=== PATIENT | female | born 1995 | race Caucasian/White ===

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

== ENCOUNTER 2017-01-26 09:10 | Outpatient (CLI) | payer OTHER ==
--- NOTE | 2017-01-26 10:52 | DIAGNOSTIC IMAGING REPORT ---
PROCEDURE: US OB DETAILED ANATOMIC INDICATION: ANATOMY TECHNIQUE: Bean scale, color, and spectral Doppler images of the second trimester gravid uterus were obtained. COMPARISON: None. FINDINGS: A single living intrauterine is in vertex presentation. There is regular cardiac activity at a rate of 155 beats per minute. The placenta is posterior and to the maternal left and away from the internal cervical os. The cervix is closed measuring approximately 3.7 cm in length. The amniotic fluid volume is subjectively normal. Biparietal diameter 4.8 cm, 20 weeks 4 days Head circumference 17.6 cm, 20 weeks 0 days Abdominal circumference 15.7 cm, 20 weeks 6 days Femur length 3.5 cm, 20 weeks 6 days Head to abdominal circumference ratio and femur length to abdominal circumference ratios are normal. Estimated weight 375 g plus/minus 56 g Composite gestational age 20 weeks 4 days There was visualization of a number of normal structures including the intracranial contents, facial features, nuchal region, spine, four-chamber heart and outflow tracts to the extent that could be visualized, diaphragm, fluid-filled stomach, kidneys, abdomen, urinary bladder, upper and lower extremities, and genitals. A three-vessel umbilical cord, normal and placental cord insertion sites were seen. Incidental note is made of a fairly large simple cystic structure immediately adjacent to the uterus in the right adnexa measuring approximately 7.6 cm in greatest diameter, likely ovarian cyst. No free pelvic fluid. IMPRESSION: 1. Single living intrauterine with a composite gestational age of 20 weeks 4 days and estimated due date 06/11/2017. 2. Symmetric growth and normal anatomy.
== END 2017-01-26 23:00 ==
LOC: US SRH 09:10
DX: Z34.92 Encounter for supervision of normal pregnancy, unspecified, second trimester (principal); Z3A.20 20 weeks gestation of pregnancy

== ENCOUNTER → 2017-03-28 | Outpatient (CLI) | payer OTHER | LOC: LAB SRH 09:57 | DX: Z34.82 Encounter for supervision of other normal pregnancy, second trimester (principal) | CPT/HCPCS: 90039; 90074; 91162; 91163 ==

== ENCOUNTER → 2017-05-27 | Outpatient (CLI) | payer OTHER ==
--- NOTE | 2017-05-28 10:16 | DIAGNOSTIC IMAGING REPORT ---
PROCEDURE: US OB RE-EVALUATION INDICATION: SIZE GREATER THAN DATES TECHNIQUE: Transabdominal ramos scale and color Doppler imaging was obtained of the third trimester gravid uterus. COMPARISON: 01/26/2017 FINDINGS: Single live intrauterine is in vertex presentation. Regular heart rate at 143 beats per minute. Placenta is fundal in the posterior and has a normal appearance without previa or abruption. The cervix is closed and measures 3.5 cm in length. Amniotic fluid index is 11.5 cm, within normal limits. 9.1 cm, 36-week 6 days Head circumference 33.7 cm, 38 weeks 4 days Abdominal circumference 32.7 cm, 36 weeks 4 days Femur length 7.3 cm, 37 weeks 2 days Estimated weight 3094 g plus/minus 464 g, 38 weeks 3 days Head to abdominal circumference ratio and femur length to abdominal circumference ratios are normal Composite gestational age 37 weeks 2 days IMPRESSION: 1. Single living intrauterine with a gestational age of 37 weeks 2 days, 4 days behind the initially assigned gestational age of 37 weeks 6 days. 2. Fairly symmetric growth. 3. Closed cervix and normal amniotic fluid volume.
== END ==
LOC: US SRH 15:00
DX: Z34.93 Encounter for supervision of normal pregnancy, unspecified, third trimester (principal); Z3A.37 37 weeks gestation of pregnancy

== ENCOUNTER 2017-06-11 12:08 | Inpatient (IN) | payer OTHER ==
[~2017-06-11] VITALS: Ht 162.6 cm; Wt 120.7 kg
[2017-06-11 20:51] VITALS: BP 124/77
[2017-06-11 21:03] VITALS: BP 106/53
[2017-06-11 21:11] VITALS: BP 101/58
[2017-06-11 21:26] VITALS: BP 104/58
[2017-06-11 21:42] VITALS: BP 137/76
[2017-06-11 22:14] VITALS: BP 132/68
[2017-06-12 00:44] VITALS: BP 102/70
[2017-06-12 03:44] VITALS: BP 112/74
[2017-06-12 08:15] VITALS: BP 117/58
[2017-06-12 16:04] VITALS: BP 114/57
[2017-06-12 20:38] VITALS: BP 109/76
[2017-06-13] VITALS: BP 112/59
--- NOTE | 2017-06-13 09:49 | Provider's Discharge Care Plan ---
Problem, Goal, Plan Problem List 1. Delivery in a completely normal case
--- NOTE | 2017-06-13 09:49 | Provider's Discharge Care Plan ---
Problem, Goal, Plan Problem List 1. Delivery in a completely normal case
== END 2017-06-13 13:00 | disposition home or self-care (01) | DRG 560 ==
LOC: OBC SRH 12:08 → OB SRH 12:18
PROVIDERS: ADMIT Obstetrics & Gynecology
PROC: 0UQMXZZ Repair Vulva, External Approach (ICD-10-PCS; principal; 2017-06-11)
PROC: 10E0XZZ Delivery of Products of Conception, External Approach (ICD-10-PCS; principal; 2017-06-11)
DX: O71.82 Other specified trauma to perineum and vulva (principal); Z37.0 Single live birth; O77.0 Labor and delivery complicated by meconium in amniotic fluid; O99.824 Streptococcus B carrier state complicating childbirth; Z3A.39 39 weeks gestation of pregnancy; O99.214 Obesity complicating childbirth; E66.01 Morbid (severe) obesity due to excess calories; O99.334 Smoking (tobacco) complicating childbirth; F17.210 Nicotine dependence, cigarettes, uncomplicated